=== PATIENT | female | born 1990 | race Two or more races ===

== ENCOUNTER 2024-06-08 23:27 | Emergency (ER) | payer MEDICAID ==
[~2024-06-08] VITALS: Ht 160 cm; Wt 99.9 kg
[2024-06-08 23:32] VITALS: BP 132/80; PULSE 84; RESP 16; O2SAT 99
== END 2024-06-09 06:53 | disposition home or self-care (01) ==
LOC: ER 23:27
DX: O20.0 Threatened abortion (principal); E11.9 Type 2 diabetes mellitus without complications; Z3A.01 Less than 8 weeks gestation of pregnancy

== ENCOUNTER 2024-06-23 08:40 | Emergency (ER) | payer MEDICAID ==
[~2024-06-23] VITALS: Ht 160 cm; Wt 98.7 kg
[2024-06-23 09:33] VITALS: BP 118/73; PULSE 68; RESP 16; TEMP 98.6; O2SAT 100
[2024-06-23 10:19] LABS: Basophils # (auto) 0 10 ^3/uL (0-0.2); Basophils % (auto) 0.6 % (0.0-2.0); Eosinophils # (auto) 0.1 10 ^3/uL (0-0.8); Eosinophils % (auto) 1.1 % (0.0-7.0); Hematocrit 41.3 % (36.0-46.0); Hemoglobin 14.2 g/dL (12.2-16.2); Lymphocytes # (auto) 2.2 10 ^3/uL (0.4-5.4); Lymphocytes % (auto) 27.1 % (10.0-50.0); Mean Corpuscular Hemoglobin 31.8 pg (28.0-32.0); Mean Corpuscular Hgb Conc. 34.3 g/dL (32.0-36.0); Mean Corpuscular Volume 92.7 fL (80.0-100.0); Monocytes # (auto) 0.3 10 ^3/uL (0-1.3); Neutrophils # (auto) 5.5 10 ^3/uL (1.6-8.6); Neutrophils % (auto) 67.2 % (37.0-80.0); Nucleated Red Blood Cells % 0.1 %; Platelet Count (auto) 185 10^3/uL (140-450); Red Blood Cells 4.46 10^6/uL (4.0-5.20); Red Cell Distribution Width 13.7 % (11.8-14.3); White Blood Cell 8.1 10^3/uL (4.4-10.8)
== END 2024-06-23 12:18 | disposition home or self-care (01) ==
LOC: ER 08:40
DX: O20.0 Threatened abortion (principal); R10.2 Pelvic and perineal pain; Z3A.01 Less than 8 weeks gestation of pregnancy
CPT/HCPCS: 36415; 76801; 84702; 85025